=== PATIENT | male | born 1965 | race American Indian/Alaskan Native ===

== ENCOUNTER 2017-02-15 17:32 | Emergency (ER) | payer SELFPAY ==
--- NOTE | 2017-02-16 00:17 | XRay Report ---
FINAL REPORT PROCEDURE: XR HIP 2-3V RT TECHNIQUE: RIGHT hip radiographs, AP and lateral views. HISTORY: sharp pain in right hip COMPARISON: No prior studies are available for comparison. FINDINGS: Fracture (s) and/or Dislocation(s): None . Joint space(s): There is advanced degenerative arthrosis of the hip joint.. Soft tissues: Normal . Bone mineralization: Normal . Foreign bodies: None . IMPRESSION: There are no fractures or dislocations. There is degenerative arthrosis of the right hip. Soft tissues are unremarkable..
--- NOTE | 2017-02-16 01:19 | Emergency Department Report ---
ED Lower Extremity HPI - General Chief Complaint: Extremity Problem,Nontraumatic Stated Complaint: INNER THIGH INJURY Time Seen by Provider: 02/16/17 00:27 Source: patient Mode of arrival: Ambulatory Limitations: No Limitations - History of Present Illness Initial Comments: This is a 51-year-old male nontoxic, well nourished in appearance, no acute signs of distress presents to the ED complaining of right hip pain 5 weeks. Patient stated his intermittent pain. Patient denies any trauma to the region. Patient is progressively getting worse. 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 Patient denies any numbness, tingling, fever, chills, nausea, vomiting, chest pain or shortness breath. Patient denies any back pain. Denies joint redness or joint swelling. Patient denies follow-up with a primary care doctor for this concern. Denies recent x-rays. Denies any drug allergies. Past medical history includes hypertension. MD Complaint: hip injury -: Gradual, week(s) (5) Injury: Hip: Right Place: work Severity: mild Severity scale (0 -10): 6 Improves With: nothing Worsens With: nothing Associated Symptoms: ambulatory. denies: snap/pop sensation, swelling, numbness , tingling, unable to bear weight, able to partially bear weight - Related Data Previous Rx's Medication Instructions Recorded Last Taken Type Naproxen [Naprosyn TAB] 500 mg PO BID #30 tablet 02/16/17 Unknown Rx Allergies Allergy/AdvReac Type Severity Reaction Status Date / Time No Known Allergies Allergy Unverified 02/15/17 19:42 ED Review of Systems ROS: Stated complaint: INNER THIGH INJURY Other details as noted in HPI Constitutional: denies: chills, fever Eyes: denies: eye pain, eye discharge, vision change ENT: denies: ear pain, throat pain Respiratory: denies: cough, shortness of breath, wheezing Cardiovascular: denies: chest pain, palpitations Endocrine: no symptoms reported Gastrointestinal: denies: abdominal pain, nausea, diarrhea Genitourinary: denies: urgency, dysuria Musculoskeletal: denies: back pain, joint swelling, arthralgia Skin: denies: rash, lesions Neurological: denies: headache, weakness, paresthesias Psychiatric: denies: anxiety, depression Hematological/Lymphatic: denies: easy bleeding, easy bruising ED Past Medical Hx - Past Medical History Previous Medical History?: Yes Hx Hypertension: Yes - Surgical History Past Surgical History?: Yes Additional Surgical History: T&A - Social History Smoking Status: Never Smoker Substance Use Type: None - Medications Home Medications: Home Medications Medication Instructions Recorded Confirmed Last Taken Type Naproxen [Naprosyn TAB] 500 mg PO BID #30 tablet 02/16/17 Unknown Rx ED Physical Exam - General Limitations: No Limitations General appearance: alert, in no apparent distress - Head Head exam: Present: atraumatic, normocephalic - Eye Eye exam: Present: normal appearance, PERRL, EOMI Pupils: Present: normal accommodation - ENT ENT exam: Present: normal exam, normal orophraynx, mucous membranes moist, TM's normal bilaterally, normal external ear exam - Neck Neck exam: Present: normal inspection, full ROM. Absent: tenderness, meningismus, lymphadenopathy, thyromegaly - Respiratory Respiratory exam: Present: normal lung sounds bilaterally. Absent: respiratory distress, wheezes, rales, rhonchi, stridor, chest wall tenderness, accessory muscle use, decreased breath sounds, prolonged expiratory - Cardiovascular Cardiovascular Exam: Present: regular rate, normal rhythm, normal heart sounds. Absent: bradycardia, tachycardia, irregular rhythm, systolic murmur, diastolic murmur, rubs, gallop - GI/Abdominal GI/Abdominal exam: Present: soft, normal bowel sounds. Absent: distended, tenderness, guarding, rebound, rigid, diminished bowel sounds - Rectal Rectal exam: Present: deferred - Extremities Exam Extremities exam: Present: normal inspection, full ROM, normal capillary refill. Absent: tenderness, pedal edema, joint swelling, calf tenderness - Expanded Lower Extremity Exam Right Hip exam: Present: normal inspection, full ROM, external rotation, internal rotation, pelvic stability. Absent: tenderness, swelling, abrasion, laceration , ecchymosis, deformity, crepidus, dislocation, erythema, shortening Upper Leg exam: Present: normal inspection, full ROM. Absent: tenderness, swelling, abrasion, laceration, ecchymosis, deformity, crepidus, dislocation, erythema Knee exam: Present: normal inspection, full ROM Lower Leg exam: Present: normal inspection, full ROM. Absent: La's sign Ankle exam: Present: normal inspection, full ROM Foot/Toe exam: Present: normal inspection, full ROM Neuro vascular tendon exam: Present: no vascular compromise Gait: Positive: observed and normal - Back Exam Back exam: Present: normal inspection, full ROM. Absent: tenderness, CVA tenderness (R), CVA tenderness (L), muscle spasm, paraspinal tenderness, vertebral tenderness, rash noted - Neurological Exam Neurological exam: Present: alert, oriented X3, CN II-XII intact, normal gait, reflexes normal - Psychiatric Psychiatric exam: Present: normal affect, normal mood - Skin Skin exam: Present: warm, dry, intact, normal color. Absent: rash ED Course Vital Signs 02/15/17 02/15/17 19:17 19:36 Temperature 98.2 F 98.2 F Pulse Rate 64 65 Respiratory 18 18 Rate Blood Pressure 143/96 143/96 O2 Sat by Pulse 93 99 Oximetry - Reevaluation(s) Reevaluation #1: 02/16/17 01:18 Patient is speaking in full sentences with no signs of distress noted. ED Lower Extremity MDM - Radiology Data Radiology results: report reviewed interpreted by me: Dictated by radiologist Normal examination with degenerative arthritis Critical care attestation.: If time is entered above; I have spent that time in minutes in the direct care of this critically ill patient, excluding procedure time. ED Disposition Clinical Impression: Degenerative arthritis Qualifiers: Osteoarthritis location: hip Osteoarthritis type: unspecified Laterality: right Qualified Code(s): M16.11 - Unilateral primary osteoarthritis, right hip Hip pain Qualifiers: Laterality: right Qualified Code(s): M25.551 - Pain in right hip Disposition: - TO HOME OR SELFCARE Is pt being admited?: No Does the pt Need Aspirin: No Condition: Stable Instructions: Naproxen (By mouth), Osteoarthritis (ED) Additional Instructions: Follow-up with a primary care doctor in 3-5 days or if symptoms worsen and continue return to emergency room as soon as possible possible. Prescriptions: Naproxen [Naprosyn TAB] 500 mg PO BID #30 tablet Referrals: PRIMARY MD GAVI [Primary Care Provider] - 3-5 Days DEWEY ALLEN MD [Staff Physician] - 3-5 Days [facility] [Outside] - 3-5 Days [facility] [Outside] - 3-5 Days Forms: Work/School Release Form(ED)
[2017-02-16 04:58] VITALS: BP 167/104
== END 2017-02-16 01:45 | disposition home or self-care (01) ==
LOC: ED 17:32
DX: M25.551 Pain in right hip (principal); M16.11 Unilateral primary osteoarthritis, right hip; I10 Essential (primary) hypertension
CPT/HCPCS: 99283

== ENCOUNTER 2017-07-08 09:09 | Emergency (ER) | payer SELFPAY ==
[2017-07-08] MEDS ORDERED: ZOFRAN ODT ONE (09:47)
[2017-07-08] MEDS ORDERED: TORADOL ONE (09:47)
[2017-07-08] MEDS ORDERED: TORADOL IM ONE (09:55)
[2017-07-08] MEDS ORDERED: ZOFRAN ODT PO ONE (09:55)
--- NOTE | 2017-07-08 09:57 | Emergency Department Report ---
Stated Complaint: RT FOOR PAIN /SWELLING Time Seen by Provider: 07/08/17 09:52 - HPI History of Present Illness: He is a 51-year-old male presents to ED complaining of right big toe pain for the past 3 days. Patient states pain is sharp and throbbing and localized to his right toe and the balls of his foot. Patient states he can't recall what he takes for gout. He denies fever/chills,/nausea/vomiting/abdominal pain. - ROS Review of Systems: See HPI - Exam Physical Exam: GENERAL: Alert , in distress from pain, in wheel chair, sweating, , atraumatic. HEAD: Head is normocephalic and a-traumatic. EXTREMITIES/MUSCULOSKELETAL: No cyanosis, clubbing, rash, lesions or edema. No joint erythema, Right big toe tenderness, tenderness to palpation at the ball of feet. pain with applied pressure. SKIN: Warm and dry, No lesions, No ulceration or induration present. MSE screening note: Focused history and physical exam performed. Due to findings the following was ordered: ED Medical Decision Making - Lab Data Result diagrams: 07/08/17 10:07 07/08/17 10:07 - Medical Decision Making 51-year-old male profusely sweating, in some distress Will order a CBC, CMP, lactic acid, UA, and x-ray of the foot. Patient received Toradol and Zofran in triage. Patient to be seen by the ED physician. ED Disposition for MSE Condition: Stable
[2017-07-08 09:59] VITALS: BP 116/77
[2017-07-08 10:19] LABS: Basophils # (Auto) 0.1 K/mm3 (0.0-0.1); Basophils % (Auto) 0.7 % (0.0-1.8); Eosinophils % (Auto) 0.1 % (0.0-4.3); Hematocrit 48.2 % (35.5-45.6); Hemoglobin 16.1 gm/dl (11.8-15.2); Lymphocytes # (Auto) 1.6 K/mm3 (1.2-5.4); Lymphocytes % (Auto) 20.7 % (13.4-35.0); Mean Corpuscular HGB Conc 34 % (32-34); Mean Corpuscular Hemoglobin 30 pg (28-32); Mean Corpuscular Volume 90 fl (84-94); Monocytes # (Auto) 0.5 K/mm3 (0.0-0.8); Monocytes % (Auto) 6.5 % (0.0-7.3); Platelet Count 300 K/mm3 (140-440); Red Blood Count 5.33 M/mm3 (3.65-5.03); Red Cell Distribution Width 13.2 % (13.2-15.2)
[2017-07-08 10:37] LABS: Alanine Aminotransferase 13 units/L (7-56); Albumin 4.5 g/dL (3.9-5); BUN/Creatinine Ratio 8; Blood Urea Nitrogen 10 mg/dL (9-20); Calcium 9.9 mg/dL (8.4-10.2); Hemolysis Index 4
--- NOTE | 2017-07-08 10:46 | XRay Report ---
AP CHEST: HISTORY: Short of breath AP view of the chest demonstrates a normal mediastinal and cardiac contour with clear lungs and normal bony and soft tissue structures. IMPRESSION: Unremarkable AP chest.
--- NOTE | 2017-07-08 10:46 | XRay Report ---
RIGHT FOOT, 2 VIEWS History: Toe pain. Findings: 2 views of the right foot demonstrate no evidence for acute osseous abnormality or joint pathology. The soft tissues are unremarkable. Impression: No abnormality identified.
--- NOTE | 2017-07-08 10:54 | Emergency Department Report ---
HPI - General Chief Complaint: Extremity Problem,Nontraumatic Time Seen by Provider: 07/08/17 09:52 - HPI HPI: Patient complains of right great toe, swelling, pain, redness history of gout. Patient denies any fever or chills night short. Patient denied injury to the great toe. ED Past Medical Hx - Past Medical History Previous Medical History?: Yes Hx Hypertension: Yes Hx Seizures: Yes - Surgical History Past Surgical History?: Yes Additional Surgical History: T&A - Social History Smoking Status: Never Smoker Substance Use Type: Alcohol - Medications Home Medications: Home Medications Medication Instructions Recorded Confirmed Last Taken Type Naproxen [Naprosyn TAB] 500 mg PO BID #30 tablet 02/16/17 Unknown Rx Ketorolac [Toradol] 10 mg PO Q6H PRN #14 tablet 07/08/17 Unknown Rx Methocarbamol [Robaxin-750] 750 mg PO BID PRN #20 tablet 07/08/17 Unknown Rx amLODIPine [Norvasc] 5 mg PO DAILY #30 tab 07/08/17 Unknown Rx ED Review of Systems ROS: Stated complaint: RT FOOR PAIN /SWELLING Other details as noted in HPI Comment: All other systems reviewed and negative Respiratory: no symptoms reported Musculoskeletal: arthralgia Physical Exam - Physical Exam Vital Signs: Vital Signs 07/08/17 09:35 Temperature 98.5 F Pulse Rate 76 Respiratory 22 Rate Blood Pressure 116/77 [Right] O2 Sat by Pulse 97 Oximetry Physical Exam: Gen. alert and oriented 3 in no distress Head atraumatic normocephalic Eyes PERR LA EOMI Chest regular rate and rhythm normal S1-S2 lungs clear bilaterally Abdomen soft nondistended Back no point tenderness paravertebral tenderness Neuro no focal deficit. Psych normal mood. Extremity: Right great toe base redness, swelling, tender to the touch. ED Course Vital Signs 07/08/17 09:35 Temperature 98.5 F Pulse Rate 76 Respiratory 22 Rate Blood Pressure 116/77 [Right] O2 Sat by Pulse 97 Oximetry ED Medical Decision Making - Lab Data Result diagrams: 07/08/17 10:07 07/08/17 10:07 Critical care attestation.: If time is entered above; I have spent that time in minutes in the direct care of this critically ill patient, excluding procedure time. ED Disposition Clinical Impression: Gout attack Qualifiers: Gout site: foot Gout etiology: idiopathic Laterality: right Qualified Code(s): M10.071 - Idiopathic gout, right ankle and foot Disposition: - TO HOME OR SELFCARE Is pt being admited?: No Does the pt Need Aspirin: No Condition: Stable Instructions: Acute Gouty Arthritis (ED) Prescriptions: amLODIPine [Norvasc] 5 mg PO DAILY #30 tab Ketorolac [Toradol] 10 mg PO Q6H PRN #14 tablet PRN Reason: Pain Methocarbamol [Robaxin-750] 750 mg PO BID PRN #20 tablet PRN Reason: Muscle Spasm Referrals: PRIMARY CARE, [Primary Care Provider] - 3-5 Days Forms: Work/School Release Form(ED)
== END 2017-07-08 11:20 | disposition home or self-care (01) ==
LOC: ED 09:09
DX: M10.071 Idiopathic gout, right ankle and foot (principal); I10 Essential (primary) hypertension; Z90.49 Acquired absence of other specified parts of digestive tract
CPT/HCPCS: 36415; 71045; 73620; 80053; 82140; 85025; 96372; 99284; J1885; Q0162